=== PATIENT | male | born 1975 | race African-American/Black ===

== ENCOUNTER 2023-03-21 18:35 | Inpatient (IN) ==
[2023-03-21 20:04] LABS: ABS Lymphocytes 0.7 10^3/uL (1.0-4.8); ABS Monocytes 0.8 10^3/uL (0.0-1.1); ABS Neutrophils 6.8 10^3/uL (1.5-7.6); ABS Nucleated RBC 0.01 10^3/ul; Eosinophil % 0.2 %; Hematocrit 37.4 % (38-53); Hemoglobin 13.2 g/dL (13.2-16.3); Lymphocyte % 8.3 %; Mean Corpuscular Hemoglobin 34.8 pg (27-33); Mean Corpuscular Hgb Conc 35.3 g/dL (31-36); Mean Corpuscular Volume 98.7 fL (80-97); Mean Platelet Volume 6.6 fL (7.5-11.2); Nucleated Red Blood Cells % 0.1 /100 WBC (0.0-0.4); Platelet Count 319 10^3/uL (150-450); Red Blood Count 3.79 10^6/uL (4.06-5.63); Red Cell Distribution Width 12.8 % (12-17); White Blood Count 8.2 10^3/uL (3.6-10.2)
[2023-03-21] MEDS ORDERED: levETIRAcetam IV 1,500 MG in NS 0.9% 100 ml BAG 100 ML IVPB ONE (20:05)
[2023-03-21 20:10] LABS: INR 1.07 (0.88-1.18)
[2023-03-21 20:29] LABS: Albumin 4.1 g/dL (3.2-5.2); Anion Gap 8 mmol/L (2-16); Blood Urea Nitrogen 17 mg/dL (6-24); CO2 Carbon Dioxide 27 mmol/L (22-32); Calcium 9.6 mg/dL (8.6-10.3); Chloride 97 mmol/L (101-111); Creatinine, Serum 1.42 mg/dL (0.67-1.17); Globulin 4.5 g/dL (2-4); Glucose 128 mg/dL (70-100); Magnesium 2.4 mg/dL (1.9-2.7); Potassium 3.8 mmol/L (3.5-5.0); Sodium 132 mmol/L (135-145); Total Protein 8.6 g/dL (6.4-8.9); eGFR CKD-EPI 61.7 (>60)
[2023-03-21 20:30] LABS: ALT 31 U/L (7-52); AST 27 U/L (13-39); Albumin/Globulin Ratio 0.9 (1-3); Alkaline Phosphatase 76 U/L (35-149)
[2023-03-21 20:48] LABS: Alcohol, S < 13 mg/dL (<13)
[2023-03-21] MEDS ORDERED: Dexamethasone IV 4 MG/ML VIAL 1 ml VIAL IV SLOW PU ONE (21:58)
[2023-03-22] MEDS ORDERED: Gadoteridol (CONTRAST) 279.3 MG/ML 10 ML IV ONE (00:50)
[2023-03-22] MEDS ORDERED: Dexamethasone IV 4 MG/ML VIAL 1 ml VIAL IV SLOW PU ONE (03:53)
[2023-03-22] MEDS ORDERED: cefTRIAXone 2 gm/50 mL D5W 2 GM/50 ML BAG IV SCH (04:00)
[2023-03-22] MEDS ORDERED: metroNIDAZOLE IV 500 MG/100ML 500 MG/100 ML BAG IVPB SCH (04:00)
[2023-03-22 04:04] LABS: Osmolality Serum 284 mOsm/kg (275-295)
[2023-03-22 04:27] LABS: Creatine Kinase 185 U/L (10-223)
[2023-03-22 07:47] LABS: ABS Lymphocytes 0.6 10^3/uL (1.0-4.8); ABS Monocytes 0.1 10^3/uL (0.0-1.1); ABS Neutrophils 7.6 10^3/uL (1.5-7.6); Eosinophil % 0.1 %; Hematocrit 37.7 % (38-53); Hemoglobin 13.1 g/dL (13.2-16.3); Lymphocyte % 6.7 %; Mean Corpuscular Hemoglobin 34.5 pg (27-33); Mean Corpuscular Hgb Conc 34.8 g/dL (31-36); Mean Corpuscular Volume 99.2 fL (80-97); Mean Platelet Volume 6.7 fL (7.5-11.2); Platelet Count 313 10^3/uL (150-450); Red Cell Distribution Width 12.7 % (12-17); White Blood Count 8.4 10^3/uL (3.6-10.2)
[2023-03-22] MEDS ORDERED: levETIRAcetam 500 MG IVPREMIX 500 MG/100 ML BAG IV SCH (08:00)
[2023-03-22 08:10] LABS: Calcium 9.6 mg/dL (8.6-10.3); Creatinine, Serum 1.39 mg/dL (0.67-1.17); Magnesium 2.6 mg/dL (1.9-2.7); Potassium 4.4 mmol/L (3.5-5.0); eGFR CKD-EPI 63.3 (>60)
[2023-03-22 11:24] LABS: Urine Appearance Clear; Urine Bilirubin Negative (Negative); Urine Blood Negative (Negative); Urine Color Yellow; Urine Glucose Negative (Negative); Urine Ketones Negative (Negative); Urine Nitrite Negative (Negative); Urine Protein Negative (Negative); Urine Specific Gravity 1.011 (1.002-1.030); Urine Urobilinogen Negative (Negative)
[2023-03-22 11:32] LABS: Urine Osmo 344 mOsm/kg (150-1150)
[2023-03-22 11:51] LABS: Urine Benzodiazepine Screen None Detected (None Detect); Urine Cannabinoids Screen None Detected (None Detect); Urine Opiates Screen None Detected (None Detect)
[2023-03-22 12:35] LABS: Folate 17.51 ng/mL (5.90-24.80)
[2023-03-22 12:38] LABS: Vitamin B12 338 pg/mL (180-914)
[2023-03-22] MEDS: metroNIDAZOLE IV 500 MG/100ML 500 MG/100 ML BAG IVPB SCH ×2 (16:04→23:27)
[2023-03-22 16:24] LABS: C Reactive Protein 18.28 mg/L (<8.01)
[2023-03-22 16:50] LABS: HIV 4th Generation Nonreactive (Nonreactive)
[2023-03-22] MEDS: levETIRAcetam IV 750 MG in NS 0.9% 100 ml BAG 100 ML IVPB SCH (17:25)
[2023-03-22 18:00] LABS: Erythrocyte Sed Rate 89 mm/Hr (0-14)
[2023-03-23] MEDS: levETIRAcetam IV 750 MG in NS 0.9% 100 ml BAG 100 ML IVPB SCH ×2 (04:17→15:58)
[2023-03-23] MEDS: metroNIDAZOLE IV 500 MG/100ML 500 MG/100 ML BAG IVPB SCH ×3 (06:30→23:19)
[2023-03-23 07:05] LABS: ABS Lymphocytes 1.2 10^3/uL (1.0-4.8); ABS Monocytes 0.7 10^3/uL (0.0-1.1); ABS Neutrophils 6.1 10^3/uL (1.5-7.6); Eosinophil % 0.3 %; Hematocrit 35.6 % (38-53); Hemoglobin 12.4 g/dL (13.2-16.3); Mean Corpuscular Hemoglobin 35.3 pg (27-33); Mean Corpuscular Hgb Conc 34.9 g/dL (31-36); Mean Corpuscular Volume 101.2 fL (80-97); Mean Platelet Volume 6.4 fL (7.5-11.2); Platelet Count 304 10^3/uL (150-450); Red Blood Count 3.52 10^6/uL (4.06-5.63); Red Cell Distribution Width 12.8 % (12-17); White Blood Count 8.1 10^3/uL (3.6-10.2)
[2023-03-23 07:21] LABS: Calcium 9.3 mg/dL (8.6-10.3); Creatinine, Serum 1.46 mg/dL (0.67-1.17); Potassium 3.7 mmol/L (3.5-5.0); eGFR CKD-EPI 59.7 (>60)
[2023-03-23] MEDS: cefTRIAXone 2 gm/50 mL D5W 2 GM/50 ML BAG IV SCH (07:41)
[2023-03-23] MEDS ORDERED: cefTRIAXone 1 gm/50 mL D5W 1 GM/50 ML BAG IV SCH (09:00)
[2023-03-24] MEDS: levETIRAcetam IV 750 MG in NS 0.9% 100 ml BAG 100 ML IVPB SCH ×2 (04:02→16:57)
[2023-03-24 06:07] LABS: ABS Lymphocytes 1.4 10^3/uL (1.0-4.8); ABS Monocytes 0.7 10^3/uL (0.0-1.1); ABS Nucleated RBC 0.03 10^3/ul; Eosinophil % 0.7 %; Hematocrit 34.9 % (38-53); Hemoglobin 12.2 g/dL (13.2-16.3); Lymphocyte % 22.4 %; Mean Corpuscular Hemoglobin 34.6 pg (27-33); Mean Corpuscular Hgb Conc 34.8 g/dL (31-36); Mean Corpuscular Volume 99.6 fL (80-97); Mean Platelet Volume 6.9 fL (7.5-11.2); Nucleated Red Blood Cells % 0.4 /100 WBC (0.0-0.4); Platelet Count 305 10^3/uL (150-450); Red Blood Count 3.51 10^6/uL (4.06-5.63); Red Cell Distribution Width 13.1 % (12-17); White Blood Count 6.1 10^3/uL (3.6-10.2)
[2023-03-24 06:33] LABS: C Reactive Protein 6.8 mg/L (<8.01); Creatinine, Serum 1.34 mg/dL (0.67-1.17); Potassium 3.7 mmol/L (3.5-5.0); eGFR CKD-EPI 66.2 (>60)
[2023-03-24] MEDS: metroNIDAZOLE IV 500 MG/100ML 500 MG/100 ML BAG IVPB SCH ×3 (07:18→22:49)
[2023-03-24] MEDS: cefTRIAXone 2 gm/50 mL D5W 2 GM/50 ML BAG IV SCH (10:15)
[2023-03-25] MEDS: levETIRAcetam IV 750 MG in NS 0.9% 100 ml BAG 100 ML IVPB SCH (04:49)
[2023-03-25] MEDS: metroNIDAZOLE IV 500 MG/100ML 500 MG/100 ML BAG IVPB SCH (09:26)
[2023-03-25] MEDS: cefTRIAXone 2 gm/50 mL D5W 2 GM/50 ML BAG IV SCH (10:07)
[2023-03-25 14:06] VITALS: BP 144/89
== END 2023-03-25 22:00 | disposition home or self-care (01) | DRG 53 ==
LOC: ED 18:35 → EDHOLD 03-22 01:44 → SUATTDRO 03-22 01:44 → MEDTELE 03-22 12:11
PROVIDERS: ADMIT Internal Medicine; ATTEND Internal Medicine